=== PATIENT | male | born 1980 | race Caucasian/White ===

== ENCOUNTER → 2016-08-05 | Outpatient (CLI) | payer BC ==
[2016-08-05 13:14] LABS: BLOOD UREA NITROGEN 15 mg/dl (7-18); BUN/CREATININE RATIO 14.5 (10-20); CALCIUM 9.6 mg/dl (8.5-10.1); CARBON DIOXIDE 33 mmol/L (21-32); CHLORIDE 103 mmol/L (98-107); GLUCOSE 114 mg/dl (70-99); SODIUM 141 mmol/L (136-145)
[2016-08-05 13:15] LABS: HEMATOCRIT 42.2 % (42-52)
[2016-08-05 13:56] LABS: ESTIMATED AVERAGE GLUCOSE 111 mg/dl; HA1C FLAG Normal (Normal)
== END | disposition home or self-care (01) ==
LOC: C.LABMFLN 11:52
PROVIDERS: ATTEND Family Medicine
DX: R53.83 Other fatigue (principal); R73.01 Impaired fasting glucose; I10 Essential (primary) hypertension